=== PATIENT | female | born 1960 | race African-American/Black ===

== ENCOUNTER → 2019-02-18 | Outpatient (CLI) | payer OTHER ==
[~2019-02-18] VITALS: Ht 157.5 cm; Wt 73.5 kg
[~2019-02-18] MED LIST: ASPIR 8181 MG PO; HYDROCHLOROTHIA25 M2 PO; IMDUR 30 MG TAB30 M1 PO; LISINOPRIL20 MG PO; NEURONTIN 300300 M1 PO; NICOTINE TRANSD21 M1; NORVASC5 MG PO; PRAVACHOL20 MG PO; PROTONIX40 M1 PO; TOPAMAX 25 MG T25 M1 PO; TRAMADOL 50 MG50 MG PO
[2019-02-18 08:53] VITALS: BP 138/84
[2019-02-18 09:15] LABS: HEMATOCRIT 36.1 % (37.0-47.0); HEMOGLOBIN 12.6 gm/dL (12.0-15.0); MCH 26.9 pg (26.0-34.0); MCHC 34.8 g/dL (28.0-37.0); MCV 77.3 fL (80.0-100.0); MPV 7.9 fl. (7.2-11.1); RBC 4.67 mil/uL (4.20-5.00); RDW-CV 13.7 % (10.5-14.5)
[2019-02-18 09:21] LABS: APTT 30.4 Seconds (25.0-31.3); PROTIME 10.7 Seconds (9.20-11.50)
[2019-02-18 09:34] LABS: ANION GAP 11 mmol/L (7-16); BUN 16 mg/dL (7-18); CALCIUM 9.3 mg/dL (8.5-10.1); CHLORIDE 104 mmol/L (98-107); CO2 28 mmol/L (21-32); CREATININE 0.6 mg/dL (0.6-1.3); GLUCOSE 100 mg/dL (70-99); POTASSIUM 3.8 mmol/L (3.5-5.1); SODIUM 143 mmol/L (136-145)
[2019-02-18 09:35] LABS: SERUM ASSESSMENT Clear
[2019-02-18 09:46] LABS: CHOLESTEROL 235 mg/dL (<200); HDL CHOLESTEROL 48 mg/dL (>40); LDL CHOLESTEROL 172 mg/dL (<100); TC:HDL 4.9 Ratio (Not establshd); TRIGLYCERIDE 79 mg/dL (<150); VLDL 16 mg/dL (<40)
--- NOTE | 2019-02-18 11:24 | EKG ---
[place] [address] ELECTROCARDIOGRAM REPORT Name: RAYMUNDO FLORESLINE GERALDINE Room: [facility]#: [id number] Admission: 02/18/19 Attend Phys: Asher Major MD Discharge: Date of : 62 Report #: [id number] THIS REPORT FOR: //name// [facility] Test Date: 2019-02-18 Test Time: 09:30:39 Pat Name: CHAN FLOERS Department: Room: Gender: F Nursing Staffing Coordinator: : 1960 Requested By: Asher Major Order Number: [id number] Paty MD: Asher Major Measurements Intervals [place] Rate: 70 P: 53 AK: 161 QRS: 62 QRSD: 84 T: 23 QT: 417 QTc: 450 Interpretive Statements Sinus rhythm No previous ECG available for comparison Electronically Signed On 02-18-2019 11:24:13 CDT by Asher Major [email or web address] <ELECTRONICALLY SIGNED> By: Asher Major MD, [facility] 02/18/19 1124 0930 0930 Asher Major MD, FACC /EPI
[2019-02-18 13:15] VITALS: BP 135/76
[2019-02-18 13:45] VITALS: BP 133/83
[2019-02-18 14:07] VITALS: BP 132/77
--- NOTE | 2019-02-18 14:25 | CARD ---
[address] [address] CARDIAC CATH REPORT Name: CHAN FLORES GERALDINE Room: [facility] Faustino#: [id number] Admission: 02/18/19 Attend Phys: Asher Major MD Discharge: Date of : 62 Report #: [id number] THIS REPORT FOR: //name// APPROVED REPORT Study performed: 02/18/2019 11:39:29 Patient Details The patient is a 58 year-old female Event Personnel Asher Major Chief Fishery Division, Anne Marie Amador RN RN, Douglas GalvezIS Scrub, Mariola Bryan RN Monitor Procedures Performed Left Heart Cath w/or w/o Coronaries [id number] [facility] , femoral Procedure Narrative The patient was brought electively to the Cardiac Catheterization Laboratory and was prepped and draped in a sterile manner. The right femoral was infiltrated with 2% Lidocaine subcutaneous anesthesia. A Dexter 5fr sheath was inserted into the right femoral artery. Coronary angiography was performed using coronary diagnostic catheters. The right coronary system was accessed and visualized with a JR4 5fr catheter. The left coronary system was accessed and visualized with a JL4 5fr catheter. The left ventricle was accessed and visualized with a PC: Angled Pig 5fr catheter. The patient tolerated the procedure well and there were no complications associated with the procedure. had radial artery spasm, switched to 5fr sheath r fem art Intraoperative Conscious Sedation Sedation start time: 1214 Case end Time: 1247 Fentanyl 50 mcg Versed 2 mg Dose: 846 mGy Contrast Type and Amount: Visipaque 120 ml Coronary Angiography The patient's coronary anatomy is co- dominant. Diagnostic Cath Left Main normal LAD small, normal apex has diffuse disease 50% ,very small [place] [address] [place] [address] CARDIAC CATH REPORT Name: CHAN FLORES Room: [facility]#: [id number] Admission: 02/18/19 Attend Phys: Asher Major MD Discharge: Date of : 62 Report #: [id number] Diagonal 1 30% Diagonal 2 20% Circumflex large ,normal OM1 large normal Right Coronary normal R PDA normal RPLV normal Left Ventriculography The left ventricle is normal in size with normal contractility. The left ventricular ejection fraction is estimated to be >55%. Left ventricular wall motion abnormalities are not present. There is 1+ mitral insufficiency. Hemodynamics The aortic pressure is 140/71 mmHg with a mean of 93 mmHg. The left ventricular pressure is 142/4 mmHg with a mean of mmHg. The left ventricular end diastolic pressure is 18 mmHg. Conclusion 1. mild coronary artery disease 2. Normal LV function Recommendations Aggressive Medical Therapy <ELECTRONICALLY SIGNED> By: Asher Major MD, [facility] 06/1424 1425 142Asher Major MD, [facility] /INF
== END | disposition home or self-care (01) ==
LOC: M.CL 08:23
PROVIDERS: Internal Medicine Cardiovascular Disease
DX: I25.10 Atherosclerotic heart disease of native coronary artery without angina pectoris (principal); I10 Essential (primary) hypertension; E78.5 Hyperlipidemia, unspecified; K21.9 Gastro-esophageal reflux disease without esophagitis; G47.33 Obstructive sleep apnea (adult) (pediatric); F17.210 Nicotine dependence, cigarettes, uncomplicated; Z90.49 Acquired absence of other specified parts of digestive tract; Z79.82 Long term (current) use of aspirin; Z98.890 Other specified postprocedural states; Z90.711 Acquired absence of uterus with remaining cervical stump; Z79.899 Other long term (current) drug therapy; Z79.01 Long term (current) use of anticoagulants

== ENCOUNTER → 2020-07-21 | Outpatient (CLI) | payer OTHER ==
[~2020-07-21] VITALS: Ht 157.5 cm; Wt 77.1 kg
[2020-07-21] VITALS (7 sets, daily range): BP systolic 102–124; BP diastolic 46–78
[~2020-07-21] MED LIST changes: +BENTYL 10 MG CA10 M1 PO; +CARAFATE 1 GM TA1 GM PO; +GABAPENTIN 100100 MG PO; +LOPRESSOR50 PO; +NEURONTIN600 MG PO; +NEXLETOL180 MG PO; +PRILOSEC OTC20 MG PO; +REGLAN 5 MG TAB5 MG PO
[2020-07-21 08:30] LABS: HEMATOCRIT 35.6 % (37.0-47.0); HEMOGLOBIN 12.1 gm/dL (12.0-15.0); MCH 26.1 pg (26.0-34.0); MCHC 33.9 g/dL (28.0-37.0); MCV 77.1 fL (80.0-100.0); RBC 4.62 mil/uL (4.20-5.00); RDW-CV 13.5 % (10.5-14.5); WBC 12.1 thou/uL (4.0-11.0)
[2020-07-21 08:39] LABS: ANION GAP 7 mmol/L (7-16); BUN 14 mg/dL (7-18); CHLORIDE 103 mmol/L (98-107); CO2 32 mmol/L (21-32); CREATININE 0.8 mg/dL (0.6-1.3); GLUCOSE 103 mg/dL (70-99); POTASSIUM 4.1 mmol/L (3.5-5.1); SODIUM 142 mmol/L (136-145)
[2020-07-21 08:42] LABS: APTT 30.6 Seconds (25.0-31.3); INR 1.1; PROTIME 11.4 Seconds (9.20-11.50)
[2020-07-21 08:43] LABS: ALBUMIN 3.8 g/dL (3.4-5.0); ALKALINE PHOSPHATASE 76 U/L (46-116); CHOLESTEROL 217 mg/dL (<200); HDL CHOLESTEROL 45 mg/dL (>40); LDL CHOLESTEROL 161 mg/dL (<100); SERUM ASSESSMENT Clear; SGOT 23 U/L (15-37); SGPT 24 U/L (30-65); TC:HDL 4.8 Ratio (Not establshd); TOTAL BILIRUBIN 0.4 mg/dL (<0.1-1.0); TOTAL PROTEIN 7.8 g/dL (6.4-8.2); TRIGLYCERIDE 57 mg/dL (<150); VLDL 11 mg/dL (<40)
--- NOTE | 2020-07-21 10:50 | EKG ---
[place] [address] ELECTROCARDIOGRAM REPORT Name: CHAN FLORES Room: [facility]#: [id number] Admission: 07/21/20 Attend Phys: Irvin You MD Discharge: Date of : 62 Date of Service: 07/21/2008 Report #: [id number] THIS REPORT FOR: //name// [facility] Test Date: 2020-07-21 Test Time: 09:08:22 Pat Name: CHAN FLORES Department: Room: Gender: F Funeral Service Practitioner/Embalmer: : 1960 Requested By: Irvin You Order Number: [id number] Paty MD: Irvin You Measurements Intervals [place] Rate: 61 P: 50 AK: 147 QRS: 60 QRSD: 91 T: 39 QT: 420 QTc: 423 Interpretive Statements Sinus rhythm Compared to ECG 02/18/2019 09:30:39 No significant changes Electronically Signed On 07-21-2020 10:50:34 FIBREGLASS LAMINATOR by Irvin You [email or web address] <ELECTRONICALLY SIGNED> By: Irvin You MD, [facility] 07/21/20 1050 7 7 Irvin You MD, FAC /EPI
--- NOTE | 2020-07-21 15:59 | CARD ---
[address] [address] CARDIAC CATH REPORT Name: CHAN FLORES GERALDINE Room: [facility] HALMIA VillarAnjana#: [id number] Admission: 07/21/20 Attend Phys: Irvin You MD, F Discharge: Date of : 62 Report #: [id number] THIS REPORT FOR: //name// cc: Naheed Carrion MD, Michelle R. MD ~ ADDENDUM APPROVED REPORT Study performed: 07/21/2020 08:47:00 Patient Details Patient Status: Out-Patient Room #: The patient is a 59 year-old female Event Personnel Irvin You Solid Center Winder, Floyd Argueta RN Top Taper Machine, Douglas Galvez TRAILER DRIVER Monitor, Gregorio Smith RTR Scrub Procedures Performed Art Access - R radial artery Left Heart Cath w/or w/o Coronaries [id number] [facility] Indication Positive stress test, Chest pain Risk Factors Arterial Hypertension Procedure Narrative The patient was brought electively to the Cardiac Catheterization Laboratory and was prepped and draped in a sterile manner. The right wrist was infiltrated with 2% Lidocaine subcutaneous anesthesia. A Slender Glidesheath sheath was inserted into the right radial artery. Coronary angiography was performed using coronary diagnostic catheters. The right coronary system was accessed and visualized with a Diagnostic JR4 catheter. The left coronary system was accessed and visualized with a Diagnostic JL4 catheter. The left ventricle was accessed and visualized with a PIG Tail catheter. Left ventricular/Aortic Valve gradient assessed via catheter pullback. Left ventriculogram was performed in JOHNSON projection. Closure device was deployed with a 6 Fr vascband. The patient tolerated the procedure well and there were no complications associated with the procedure. There was no hematoma. Intraoperative Conscious Sedation Sedation start time: 940 Case end Time: 1011 [place] [address] CARDIAC CATH REPORT Name: CHAN FLORES GERALDINE Room: [facility]#: [id number] Admission: 07/21/20 Attend Phys: Irvin You MD, F Discharge: Date of : 62 Report #: [id number] Fentanyl 75 mcg Fluoro Time: 9.5 minutes Dose: DAP 1080 cGycm2 70.6 mGy Contrast Type and Amount: Visipaque 75 ml Coronary Angiography The patient's coronary anatomy is right dominant. [place] Artery Percent Stenosis Left Main: 0 % Prox LAD: 0 % Mid/Distal LAD: 50 % Circumflex: 30 % RCA: 0 % Ramus: % Left Ventriculography The left ventricular ejection fraction is estimated to be 60-65%. Left ventricular wall motion abnormalities are not present. There is no mitral insufficiency. Hemodynamics The aortic pressure is 100/60 mmHg with a mean of 79 mmHg. The left ventricular pressure is 108/10 mmHg with a mean of mmHg. The left ventricular end diastolic pressure is 18 mmHg. There was no gradient across the aortic valve upon pullback. Pullback from the left ventricle to the aorta revealed no gradient across the aortic valve. Conclusion 1. Minimal CAD with a maximum stenosis of 50% in the mid LAD 2. LVEF 60-65% 3. suspect false positive stress test 4. suspect noncardiac chest pain Recommendations Aggressive Medical Therapy <ELECTRONICALLY SIGNED> By: Irvin You MD, [facility] 07/21/20 1558 1558 1558Irvin You MD, FACC /INF
== END | disposition home or self-care (01) ==
LOC: M.CL 08:01
PROVIDERS: ATTEND Internal Medicine Cardiovascular Disease
DX: R94.39 Abnormal result of other cardiovascular function study (principal); R07.9 Chest pain, unspecified; I25.10 Atherosclerotic heart disease of native coronary artery without angina pectoris; I10 Essential (primary) hypertension; E78.5 Hyperlipidemia, unspecified; G47.33 Obstructive sleep apnea (adult) (pediatric); K21.9 Gastro-esophageal reflux disease without esophagitis; F17.210 Nicotine dependence, cigarettes, uncomplicated; R51.9 Headache, unspecified; Z98.890 Other specified postprocedural states; Z79.899 Other long term (current) drug therapy; Z90.49 Acquired absence of other specified parts of digestive tract

== ENCOUNTER 2020-10-11 07:47 | Observation (INO) | payer OTHER ==
[~2020-10-11] VITALS: Ht 157.5 cm; Wt 74.8 kg
[2020-10-11] VITALS (12 sets, daily range): BP systolic 106–146; BP diastolic 45–83
--- NOTE | ~2020-10-11 | H ---
[address] [address] HISTORY AND PHYSICAL Name: CHAN FLORES GERALDINE Room: [address] Brooks Harmon#: [id number] Admission: 10/11/20 Attend Phys: Antolin Arroyo MD, Discharge: 10/12/20 Date of : 62 Report #: [id number] THIS REPORT FOR: cc: Naheed Carrion MD, Michelle R. MD ~ [facility],Medical Records Staff Please refer to the History and Physical performed in the physician's office. By: [id number] Records Staff [facility] /KATY
[2020-10-11 08:27] LABS: HEMATOCRIT 37.1 % (37.0-47.0); HEMOGLOBIN 12.8 gm/dL (12.0-15.0); MCH 26.6 pg (26.0-34.0); MCHC 34.5 g/dL (28.0-37.0); MCV 77.1 fL (80.0-100.0); RBC 4.81 mil/uL (4.20-5.00); RDW-CV 14.8 % (10.5-14.5); WBC 7.9 thou/uL (4.0-11.0)
[2020-10-11 08:57] LABS: ANION GAP 10 mmol/L (7-16); BUN 17 mg/dL (7-18); CALCIUM 9.3 mg/dL (8.5-10.1); CHLORIDE 104 mmol/L (98-107); CO2 25 mmol/L (21-32); CREATININE 0.8 mg/dL (0.6-1.3); GLUCOSE 161 mg/dL (70-99); SODIUM 139 mmol/L (136-145)
[2020-10-11 09:01] LABS: APTT 24.8 Seconds (25.0-31.3); INR 1.1; PROTIME 11.3 Seconds (9.20-11.50)
[2020-10-11 09:02] LABS: ALBUMIN 3.6 g/dL (3.4-5.0); ALKALINE PHOSPHATASE 71 U/L (46-116); CHOLESTEROL 188 mg/dL (<200); HDL CHOLESTEROL 49 mg/dL (>40); LDL CHOLESTEROL 133 mg/dL (<100); SGOT 17 U/L (15-37); SGPT 27 U/L (30-65); TC:HDL 3.8 Ratio (Not establshd); TOTAL BILIRUBIN 0.2 mg/dL (<0.1-1.0); TOTAL PROTEIN 7.4 g/dL (6.4-8.2); TRIGLYCERIDE 33 mg/dL (<150); VLDL 7 mg/dL (<40)
[2020-10-11 09:05] LABS: SERUM ASSESSMENT Clear
--- NOTE | 2020-10-11 14:17 | NUR ---
PATIENT RECIEVED FROM PLASTER MECHANIC THIS AM AT 1125. PATIENT IS ALERT AND ORIENTED X 4. SHE C/O CONTINUED CHEST TIGHTNESS ON ARRIVAL TO THE FLOOR. TELE SHOWS NSR. CATH SITE IS INTACT AND WITHOUT HEMATOMA. PATIENT HAS TAKEN HER DIET WELL. SHE C/O INCREASED CHEST TIGHTNESS THIS AFTERNOON. DR CAN NOTIFIED AND ORDERS RECIEVED. WILL CONTINUE TO MONITOR COMFORT.
--- NOTE | 2020-10-11 14:20 | EKG ---
[place] [address] ELECTROCARDIOGRAM REPORT Name: CHAN FLORES Room: [address] M.R.#: [id number] Admission: 10/11/20 Attend Phys: Thor Braun Discharge: Date of : 62 Date of Service: 10/11/2009 Report #: [id number] THIS REPORT FOR: //name// [facility] Test Date: 2020-10-11 Test Time: 09:09:38 Pat Name: CHAN FLORES Department: Room: [facility] Gender: F Manufacturing Accountant: : 1960 Requested By: Antolin Arroyo Order Number: [id number] Paty MD: Antolin Arroyo Measurements Intervals [place] Rate: 77 P: 51 [place]: 149 QRS: 61 QRSD: 81 T: 26 QT: 374 QTc: 424 Interpretive Statements Sinus rhythm Compared to ECG 07/21/2020 09:08:22 No significant changes Electronically Signed On 10-11-2020 14:20:04 HOUSEKEEPING STAFF by Antolin Arroyo [email or web address] <ELECTRONICALLY SIGNED> By: Antolin Arroyo MD, [facility] 10/11/20 1420 0909 09 Antolin Arroyo MD, [facility] /EPI
--- NOTE | 2020-10-11 14:22 | EKG ---
[place] [address] ELECTROCARDIOGRAM REPORT Name: CHAN FLORES Room: [address] M.R.#: [id number] Admission: 10/11/20 Attend Phys: Thor Braun Discharge: Date of : 62 Date of Service: 10/11/20 1357 Report #: [id number] THIS REPORT FOR: //name// [facility] Test Date: 2020-10-11 Test Time: 13:57:26 Pat Name: CHAN FLORES Department: Room: [facility] Gender: F Dairy Powder Mixer Operator: : 1960 Requested By: Antolin Arroyo Order Number: [id number] Paty MD: Antolin Arroyo Measurements Intervals [place] Rate: 74 P: 58 [place]: 150 QRS: 78 QRSD: 92 T: 48 QT: 401 QTc: 445 Interpretive Statements Sinus rhythm Compared to ECG 10/11/2020 09:09:38 No significant changes Electronically Signed On 10-11-2020 14:22:32 INSTALLATION ENGINEER by Antolin Arroyo [email or web address] <ELECTRONICALLY SIGNED> By: Antolin Arroyo MD, [facility] 10/11/20 1422 1357 1357 Antolin Arroyo MD, [facility] /EPI
[2020-10-12] VITALS: BP 138/76
[2020-10-12 02:06] LABS: GLYCOHEMOGLOBIN (HGB A1C) 5.2 % (4.8-5.6)
[2020-10-12 03:57] LABS: HEMATOCRIT 35.3 % (37.0-47.0); HEMOGLOBIN 11.7 gm/dL (12.0-15.0); MCH 25.7 pg (26.0-34.0); MCHC 33.3 g/dL (28.0-37.0); MCV 77.3 fL (80.0-100.0); MPV 7.6 fl. (7.2-11.1); RBC 4.57 mil/uL (4.20-5.00); RDW-CV 15.1 % (10.5-14.5); WBC 17.2 thou/uL (4.0-11.0)
[2020-10-12 04:00] VITALS: BP 138/83
[2020-10-12 04:05] LABS: ALBUMIN 3.4 g/dL (3.4-5.0); CALCIUM 9.3 mg/dL (8.5-10.1); CREATININE 0.7 mg/dL (0.6-1.3); TOTAL BILIRUBIN 0.3 mg/dL (<0.1-1.0)
[2020-10-12 04:07] LABS: TROPONIN-I LEVEL 0.66 ng/mL (<0.06)
[2020-10-12 08:40] VITALS: BP 143/78
--- NOTE | 2020-10-12 09:23 | NUR ---
CM SPOKE TO THE PT TO DISCUSS CM ASSESSMENT. PT A&O, INDEPENDENT WITH ADL'S, ACTIVE AND DRIVES. PT RESIDES AT HOME ALONE. PT USES A CPAP AT HOME. PT HAS 0 HX OF HH OR SNF. CARDIOLOGY FOLLOWING. NO CM D/C PLANNING NEEDS ANTICIPATED. CM WILL REMAIN AVAILABLE TO ASSIST AND FOLLOW NEEDED.
[2020-10-12] MEDS ORDERED: EFFIENT10 MG PO (09:26)
[2020-10-12 10:51] VITALS: BP 117/45
--- NOTE | 2020-10-12 11:18 | CARD ---
[address] [address] CARDIAC CATH REPORT Name: CHAN FLORES GERALDINE Room: [address] [place]#: [id number] Admission: 10/11/20 Attend Phys: Antolin Arroyo MD, Discharge: Date of : 62 Report #: [id number] THIS REPORT FOR: cc: Naheed Carrion MD, Michelle R. MD ~ Antolin Arroyo MD [facility] ADDENDUM APPROVED REPORT Study performed: 10/11/2020 10:28:50 Patient Details The patient is a 59 year-old female Event Personnel Antolin Arroyo Foley Artist, Malu Bhakta RN New Account Interviewer, Douglas Galvez KILN MECHANIC Monitor, Gregorio Smith RTR Scrub Procedures Performed Art Access - R femoral artery* Left Heart Cath w/or w/o Coronaries C JUNIOR Place w/wo Plasty Single LAD Hemostasis w/ Angioseal Indication Unstable angina Risk Factors Hypercholesterolemia Admission/Lab Medications/Medications given during procedure Solumedrol IV 100 mg, Benadryl IV 25 mg, Angiomax IV 11 ml, Angiomax Drip IV 26.2 ml per hr, Aspirin PO 162 mg, Effient PO 60 mg Procedure Narrative The patient was brought electively to the Cardiac Catheterization Laboratory and was prepped and draped in a sterile manner. The right femoral was infiltrated with 2% Lidocaine subcutaneous anesthesia. A 6F Sheath sheath was inserted into the right femoral artery. Coronary angiography was performed using coronary diagnostic catheters. The right coronary system was accessed and visualized with a Diagnostic JR4 catheter. The left coronary system was accessed and visualized with a Diagnostic JL4 catheter. The left ventricle was accessed and visualized with a Pig Tail catheter. Left ventricular/[place] [address] CARDIAC CATH REPORT Name: CHAN FLORES Room: [address]#: [id number] Admission: 10/11/20 Attend Phys: Antolin Arroyo MD, Discharge: Date of : 62 Report #: [id number] gradient assessed . Pre-demployment femoral angiogram was performed . Closure device was deployed with a 6 Fr Angioseal. The patient tolerated the procedure well and there were no complications associated with the procedure. There was no hematoma. Intraoperative Conscious Sedation Sedation start time: 1010 Case end Time: 1057 Fentanyl 50 mcg Versed 4 mg Fluoro Time: 9.2 minutes Dose: DAP 75307 cGycm2 942 mGy Contrast Type and Amount: 180 Diagnostic Cath Left Main 0% narrowing LAD 80% focal mid LAD stenosis Circumflex 0% narrowing Right Coronary 30% distal right coronary and just beyond the acute margin Left Ventriculography Left Ventriculography was not performed. Hemodynamics The aortic pressure is 110/59 mmHg with a mean of 65 mmHg. The left ventricular pressure is 106/0 mmHg with a mean of mmHg. The left ventricular end diastolic pressure is 12 mmHg. There was no gradient across the aortic valve upon pullback. PCI Technique Lesion Anticoagulation was achieved with Angiomax. Patient was preloaded with Angiomax Drip IV 26.2 ml per hrAngiomax IV 11 ml. Percutaneous coronary intervention was performed on the mid left anterior descending artery segment. The lesion stenosis prior to intervention was 80% with LUCRETIA 3 flow. A 6F XB LAD 3.5 Guide Catheter was used to engage the left ostium. A IG: BMW 190cm Interventional Guidewire was used to cross the lesion. BALLOON DILATION A Balloon catheter NC Trek RX 2.5 X 8 was inserted and inflated up to 15.00atm for 11seconds. Additional Inflation: 16.00atm for 7seconds[place] [address] CARDIAC CATH REPORT Name: CHAN FLORES [address]: [address]#: [id number] Admission: 10/11/20 Attend Phys: Antolin Arroyo MD, Discharge: Date of : 62 Report #: [id number] A drug-eluting stent Eolia RX Stent 2.5X12mm was inserted and inflated up to 12.00atm for 4seconds. Additional Inflation: 15.00atm for 12seconds. Final angiography reveals 0 % stenosis with LUCRETIA 3 flow. Conclusion 1. Significant coronary artery disease characterized by the following: A 80% focal mid LAD stenosis B 30% distal right coronary narrowing 2. Normal left-sided hemodynamic study 3. Successful PCI with deployment of a drug-eluting stent at the site of 80% focal mid LAD stenosis with 0% residual narrowing and LUCRETIA-3 flow to the distal vessel Recommendations Cardiac Risk Reduction Program Aggressive Medical Therapy Medications Administered Aspirin (any) Prasugrel Diagnostic Cath Approved by: Antolin Arroyo MD Date/Time: 10/11/2020 15:09:31 <ELECTRONICALLY SIGNED> By: Antolin Arroyo MD, [facility] 10/12/20 1117 1117 1117Antolin Arroyo MD, FAC /INF
--- NOTE | 2020-10-12 11:34 | EKG ---
[place] [address] ELECTROCARDIOGRAM REPORT Name: CHAN FLORES Room: [address] M.R.#: [id number] Admission: 10/11/20 Attend Phys: Thor Braun Discharge: Date of : 62 Date of Service: 10/12/20 0829 Report #: [id number] THIS REPORT FOR: //name// [facility] Test Date: 2020-10-12 Test Time: 08:29:01 Pat Name: CHAN FLORES Department: Room: [facility] Gender: F Atlassian Administrator: [place] : 1960 Requested By: Antolin Arroyo Order Number: [id number] Paty MD: Antolin Arroyo Measurements Intervals [place] Rate: 59 P: 52 IN: 154 QRS: 66 QRSD: 93 T: 27 QT: 415 QTc: 412 Interpretive Statements Sinus rhythm Compared to ECG 10/11/2020 13:57:26 No significant changes Electronically Signed On 10-12-2020 11:34:39 COMPOSITION MIXER by Antolin Arroyo [email or web address] <ELECTRONICALLY SIGNED> By: Antolin Arroyo MD, [facility] 10/12/20 1134 0829 0829 Antolin Arroyo MD, [facility] /EPI
--- NOTE | 2020-10-12 11:38 | D ---
[address] [address] DISCHARGE SUMMARY Name: CHAN FLORES Room: [address] [place]#: [id number] Admission: 10/11/20 Attend Phys: Antolin Arroyo MD, Discharge: Date of : 62 Report #: [id number] THIS REPORT FOR: cc: Naheed Carrion MD, Michelle R. MD ~ Antolin Arroyo MD [facility] DATE OF SERVICE: 10/12/2020 FINAL DISCHARGE DIAGNOSES: 1. Unstable angina. 2. Coronary artery disease. 3. Hyperlipidemia. 4. Status post percutaneous coronary intervention with stenting of the mid left anterior descending. 5. Hypertension. PROCEDURES: 10/11/2020 -- left heart catheterization, left ventriculography, selective coronary arteriography and PCI with deployment of drug-eluting stent at the site of 80% focal mid LAD stenosis. The patient is a very pleasant 59-year-old female who presented with recurrent chest discomfort, often related to exertion and typical of angina with a course of clinical instability. There was underlying hypertension and hyperlipidemia. The patient underwent cardiac catheterization on 10/11/2020 which revealed 80% focal mid left anterior descending stenosis with 30% right coronary artery beyond the acute margin. I placed one 2.5 x 12 mm Alex drug-eluting stent in the mid LAD with 0% residual narrowing and LUCRETIA 3 flow to the distal vessel. The troponin sylvia inconsequentially to 0.66. She had no pain of significance postprocedurally. She ambulated in the hallways without difficulty with good hemostasis at the right femoral site of catheterization. DISCHARGE MEDICATIONS: The patient was discharged to home on the following medications: Hydrochlorothiazide 25 mg daily, amlodipine 5 mg daily, aspirin 81 mg daily, lisinopril 40 mg daily, tramadol 50 mg q.4 hours p.r.n. pain, dicyclomine 10 mg b.i.d. p.r.n. abdominal cramps, metoclopramide 5 mg daily p.r.n. constipation, gabapentin 600 mg daily, Carafate 1 gram p.r.n. GERD symptoms, and omeprazole 20 mg daily. The patient is scheduled to see Dr. Del Rio in the office on 10/25/2020 at [address]. [place] [address] DISCHARGE SUMMARY Name: CHAN FLORES GERALDINE Room: [address] [place]#: [id number] Admission: 10/11/20 Attend Phys: Antolin Arroyo MD, Discharge: Date of : 62 Report #: [id number] Therefore, the patient is discharged to home in stable condition on the aforementioned medications with followup as iterated above. <ELECTRONICALLY SIGNED> By: Antolin Arroyo MD, [facility] 10/12/20 1138 0932 0945John Josh Arroyo MD, FACC /nt
[2020-10-12 12:00] VITALS: BP 140/75
[2020-10-12 12:51] VITALS: BP 140/75
--- NOTE | 2020-10-12 13:10 | NUR ---
RECEIVED REPORT AND ASSUMED CARE OF PATIENT AT APPROXIMATELY 0730 THIS MORNING. AM ASSESSMENT AND VS COMPLETED CHARTED. COKE DRAWER IN PLACE. MEDS GIVEN PER EMAR. RIGHT GROIN CATH SITE C/D/I. DISCHARGE ORDERS RECEIVED AND DISCHARGE COMPLETED DOCUMENTED. IV AND COKE DRAWER REMOVED. ALL BELONGINGS GATHERED AND SENT HOME WITH PATIENT. PATIENT LEFT UNIT IN WHEELCHAIR WITH NURSING STAFF AND LEFT HOSPITAL IN CAR WITH FAMILY.
== END 2020-10-12 13:10 | disposition home or self-care (01) ==
LOC: M.CL 07:47 → M.2W 11:12 → M.TBA-CV 11:12 → M.2W 11:20
PROVIDERS: ADMIT Internal Medicine; ATTEND Internal Medicine
DX: I25.110 Atherosclerotic heart disease of native coronary artery with unstable angina pectoris (principal); E78.5 Hyperlipidemia, unspecified; I10 Essential (primary) hypertension; Z20.828 Contact with and (suspected) exposure to other viral communicable diseases